=== PATIENT | male | born 1965 | race Caucasian/White ===

== ENCOUNTER 2019-11-11 14:04 | Emergency (ER) | payer OTHER ==
[~2019-11-11] VITALS: Ht 175.3 cm; Wt 63.5 kg
[2019-11-11] MEDS ORDERED: ASA81BEC PO (14:12)
[2019-11-11 14:49] LABS: ABSOLUTE EOSINOPHILS 0.4 thou/uL (0.0-0.7); ABSOLUTE LYMPHOCYTES 1.2 thou/uL (0.8-5.3); ABSOLUTE NEUTROPHILS 4.7 thou/uL (1.6-8.1); BASOPHILS 0.6 %; EOSINOPHILS 4.9 %; HEMATOCRIT 31.8 % (42.0-52.0); HEMOGLOBIN 10.8 gm/dL (14.0-18.0); LYMPHOCYTES 16.8 %; MCH 27.7 pg (26.0-34.0); MCHC 33.9 g/dL (28.0-37.0); MCV 81.5 fL (80.0-100.0); MONOCYTES 13.1 %; MPV 6.5 fl. (7.2-11.1); NUCLEATED RBCS 0 /100WBC; PLATELET COUNT* 449 thou/uL (150-400); POLYS 64.6 %; RDW-CV 14.8 % (10.5-14.5); WBC 7.3 thou/uL (4.0-11.0)
--- NOTE | 2019-11-11 15:03 | EKG ---
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 : [id number] Requested By: Yovani Candelaria Order Number: [id number] MD: Huber Barreto Measurements Intervals Dewy Rose Rate: 103 P: 81 NE: 141 QRS: 56 QRSD: 92 T: 51 QT: 322 QTc: 422 Interpretive Statements Sinus tachycardia Artifact in lead(s) aVL,aVF,V1 and baseline wander in lead(s) V1 No previous ECG available for comparison Electronically Signed On 11-11-2019 15:01:38 CDT by Huber Barreto [email or web address] <ELECTRONICALLY SIGNED> By: Huber Barreto MD, LOCATED [facility]IN [facility] 11/11/19 1501 1405 1405 Huber Barreto MD, [facility] /EPI
[2019-11-11 15:04] LABS: APTT 30.1 Seconds (25.0-31.3); CALCIUM 8.1 mg/dL (8.5-10.1); CREATININE 0.7 mg/dL (0.6-1.3); POTASSIUM 4.1 mmol/L (3.5-5.1); PROTIME 10.4 Seconds (9.20-11.50)
[2019-11-11 15:16] LABS: ALBUMIN 3.1 g/dL (3.4-5.0); TOTAL BILIRUBIN 0.7 mg/dL (<0.1-1.0); TOTAL PROTEIN 7.4 g/dL (6.4-8.2)
[2019-11-11] MEDS ORDERED: CLEOCIN HCL300 MG PO (16:13)
[2019-11-11] MEDS ORDERED: ZANAFLEX4 MG PO (16:13)
[2019-11-11 16:16] LABS: URINE BILIRUBIN NEGATIVE (Negative); URINE BLOOD NEGATIVE (Negative); URINE CLARITY CLEAR; URINE COLOR YELLOW; URINE GLUCOSE-RANDOM NEGATIVE (Negative); URINE KETONES NEGATIVE (Negative); URINE LEUKOCYTES-REFLEX NEGATIVE (Negative); URINE NITRITE-REFLEX NEGATIVE (Negative); URINE PROTEIN NEGATIVE (Negative); URINE SPECIFIC GRAVITY 1.015 (1.005-1.030)
[2019-11-11 16:20] LABS: AMP/METHAMP POSITIVE (Negative); BARBITURATES Negative (Negative); BENZODIAZEPINES Negative (Negative); COCAINE Negative (Negative); METHADONE Negative (Negative); OPIATES POSITIVE (Negative); PCP Negative (Negative); THC POSITIVE (Negative)
[2019-11-11 16:26] VITALS: BP 135/85
== END 2019-11-11 16:27 | disposition left against medical advice (07) ==
LOC: M.ERS 14:04
PROVIDERS: Family Medicine; Nurse Practitioner Family
DX: S01.01XA Laceration without foreign body of scalp, initial encounter (principal); S50.02XA Contusion of left elbow, initial encounter; S70.02XA Contusion of left hip, initial encounter; L03.011 Cellulitis of right finger; L02.511 Cutaneous abscess of right hand; R41.82 Altered mental status, unspecified; M25.562 Pain in left knee; M54.6 Pain in thoracic spine; F19.10 Other psychoactive substance abuse, uncomplicated; Z86.73 Personal history of transient ischemic attack (TIA), and cerebral infarction without residual deficits; Z91.018 Allergy to other foods; Z88.0 Allergy status to penicillin; Z88.8 Allergy status to other drugs, medicaments and biological substances; W18.39XA Other fall on same level, initial encounter; Y93.89 Activity, other specified; Y92.89 Other specified places as the place of occurrence of the external cause; Y99.8 Other external cause status